=== PATIENT | male | born 2000 | race Caucasian/White ===

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

== ENCOUNTER 2023-06-29 11:33 | Emergency (ER) | payer SELFPAY ==
[~2023-06-29] VITALS: Ht 188 cm; Wt 90.7 kg
[2023-06-29 11:39] VITALS: BP_SYST 133; PULSE 75; RESP 18; TEMP 98.3; O2SAT 97
[2023-06-29 12:29] VITALS: BP_SYST 133; PULSE 75; RESP 18; TEMP 98.3; O2SAT 97
[2023-07-01 03:07] LABS: HEPATITIS A AB, IgM Negative (Negative); HEPATITIS B CORE AB, IgM Negative (Negative); HEPATITIS B SURFACE AG Negative (Negative); HEPATITIS C VIRUS AB Non Reactive (Non Reactive)
== END 2023-06-29 12:30 | disposition home or self-care (01) ==
LOC: SED 11:33
DX: Z20.2 Contact with and (suspected) exposure to infections with a predominantly sexual mode of transmission (principal); J45.909 Unspecified asthma, uncomplicated; Z79.899 Other long term (current) drug therapy
CPT/HCPCS: 36415; 80074; 86592; 87491; 99283